=== PATIENT | male | born 1990 | race Caucasian/White ===

== ENCOUNTER 2022-03-26 18:32 | Inpatient (IN) | payer MEDICAID, SELFPAY ==
[2022-03-26 18:49] VITALS: BP 141/79; PULSE 90; RESP 18; TEMP 36.9; O2SAT 98; BMI 31.0
[2022-03-26 19:21] LABS: Basophils # 0.1 10^3/uL (0.0-0.1); Basophils % 0.6 %; Eosinophils # 0.3 10^3/uL (0.0-0.8); Eosinophils % 3.1 %; Hematocrit 44.2 % (42.0-52.0); Hemoglobin 14.2 g/dL (11.7-16.6); Lymphocytes # 2.9 10^3/uL (0.8-4.8); Lymphocytes % 34.7 %; Mean Corpuscular HGB Conc 32.1 g/dL (30.0-36.0); Mean Corpuscular Hemoglobin 29.3 pg (28.0-34.0); Mean Corpuscular Volume 91.1 fl (80-94); Mean Platelet Volume 9.3 fL (7.4-10.4); Monocytes # 0.7 10^3/uL (0.2-0.9); Monocytes % 8.1 %; Neutrophils # 4.43 10^3/uL (1.8-7.7); Neutrophils % 53.3 %; Nucleated Red Blood Cells % 0 %; Platelet Count 281 10^3/cmm (130-400); Red Blood Count 4.85 10^6/uL (4.1-5.3); Red Cell Distribution Width 12.8 % (12.1-15.1); White Blood Count 8.3 10^3/uL (4.0-10.0)
--- NOTE | 2022-03-26 19:31 | ED.C_ITS ---
HPI - Psych General: Chief Complaint: Psychiatric Symptoms Stated Complaint: MHE Time Seen by Provider: 03/26/22 19:17 Source: patient and family (spouse) Mode of arrival: ambulatory Limitations: no limitations History of Present Illness: This patient presents to our emergency department with history of opiate use and abuse. Which has complicated his life and also has resulted in overwhelming feelings of anxiety in anticipation of anxiety as well as fleeting thoughts of self-harm. His history is again remarkable for longstanding history of opiate abuse. He states he was clean for approximately 8 months and then had a 3-week hiatus of daily use of fentanyl. He states that he is trying to clear off fentanyl however he is having his pervasive thoughts that are very concerning to both he and his spouse. He has no specific plans of self-harm but does have a history of having a father who committed suicide at age 50 without any warning signs and he states that sometimes he wonders if his father knew something that he did not. He denies any other constitutional complaints. States he is in normally in good health. He has not been admitted for mental health issues in the past. MD complaint: suicidal ideation Duration: getting worse Exacerbating factors: drug use Context: recent drug abuse Associated symptoms: Reports suicidal ideation; Deny auditory hallucinations, visual hallucinations or homicidal ideation Treatments prior to arrival: none If self harm: admits thoughts of self harm Review of Systems Const: Denies: fever(s) or chills Eyes: Denies: change in vision ENMT: Denies: throat pain, odynophagia, ear discharge or nasal discharge Card: Denies: chest pain, palpitations or syncope Resp: Denies: dyspnea, productive cough or non-productive cough GI: Denies: abdominal pain, nausea or vomiting : Denies: flank pain, difficulty urinating, dysuria or urinary urgency Musc: Denies: neck pain, back pain or extremity pain Skin/Breast: Denies: rash or pruritus Neuro: Denies: headache(s), numbness in extremities, weakness in extremities, dizziness or Slurred speech present Psych: Reports: anxiety, mood swings, irritability and suicidal ideation; Denies: visual hallucinations, auditory hallucinations or homicidal ideation Physical Exam Narrative: EXAM NARRATIVE: Patient is alert makes good eye contact. Speech is somewhat rapid and approaching pressured but is logical and flowing most of the time. Const: COMMON NORMALS: patient oriented x3 GENERAL APPEARANCE: cooperative, well developed and anxious HENMT: COMMON NORMALS: normocephalic, atraumatic and moist oral mucous membranes HEAD & SCALP: normocephalic and atraumatic FACE & SINUS: normal facial exam and face symmetric Eye: COMMON NORMALS: Equal, round and reactive pupils present and conjunctivae normal CONJUNCTIVA: Yes conjunctivae normal PUPIL: Yes Equal, round and reactive pupils present Neck/C-Spine: COMMON NORMALS: full ROM and supple Chest: COMMONS NORMALS: normal inspection of the chest Resp: COMMON NORMALS: normal respiratory effort, No retractions and No use of accessory muscles Cardio: COMMON NORMALS: Peripheral pulses 2+ throughout PERIPHERAL PULSES: Peripheral pulses 2+ throughout GI: COMMON NORMALS: Normal to inspection, nondistended, normoactive bowel sounds present Back/Pelvis: COMMON NORMALS: thoracic and lumbar spine normal to inspection and thoraco-lumbar ROM normal Extremity: COMMON NORMALS: normal to inspection, full ROM and no clubbing, cyanosis or edema Neuro: COMMON NORMALS: patient oriented x3 and moves all extremities CRANIAL NERVES: Yes CN normal except as noted SPEECH: speech normal GAIT: Yes Normal gait present Psych: COMMON NORMALS: mental status grossly normal, Normal thought process present, denies hallucinations and denies homicidal ideation APPEARANCE: Yes grossly normal ATTITUDE: Yes engaged ACTIVITY/MOTOR BEHAVIOR: Yes appropriate eye contact and Yes fidgeting SPEECH: Yes rapid MOOD & AFFECT: Yes elevated mood THOUGHT PROCESS: Normal thought process present THOUGHT CONTENT: Yes Normal thought content present and Yes Suicidality present ATTENTION/CONCENTRATION: Yes attention grossly intact INSIGHT: Fair insight present (Psych) Skin: COMMON NORMALS: no rashes or lesions noted and turgor normal GENERAL SKIN EXAM: no rashes or lesions noted and turgor normal Course Reevaluation(s): Reevaluation #1: Remained stable and cooperative. Time: 21:11 Consultations: Consultation #1: Discussed with Dr. Fitzgerald who agreed to place the patient in inpatient status. Time: 21:13 Vital Signs: Vital signs: Vital Signs Temperature 98.4 F 03/26/22 18:49 Pulse Rate 90 03/26/22 18:49 Respiratory Rate 18 03/26/22 18:49 Blood Pressure 141/79 03/26/22 18:49 Pulse Oximetry 98 03/26/22 18:49 [facility] - Psych Medical Decision Making 32-year-old gentleman who presented to emergency department [place] by his spouse because of unclear thinking process and recurrent thoughts of self-harm without any specific plan. Patient has a longstanding history of opiate abuse and is been clean up until about last 3 weeks for the preceding 8 months. He has anticipating trying to get clean again but again these new thoughts that he is never experienced before are very concerning to him. He has a significant family history of suicidality and a father who committed suicide spontaneously at age 50 and some of his thoughts are regarding whether his father perhaps had the right idea or not. He is accompanied by his spouse who is very concerned and supportive of him treat seeking care. His medical screening evaluation for mental health evaluation and treatment is unremarkable for any ongoing issues that would preclude him from being admitted to the mental health unit. Lab Data : 03/26/22 19:08 03/26/22 19:08 Laboratory Results WBC 8.3 10^3/uL (4.0-10.0) 03/26/22 19:08 RBC 4.85 10^6/uL (4.1-5.3) 03/26/22 19:08 Hgb 14.2 g/dL (11.7-16.6) 03/26/22 19:08 Hct 44.2 % (42.0-52.0) 03/26/22 19:08 MCV 91.1 fl (80-94) 03/26/22 19:08 MCH 29.3 pg (28.0-34.0) 03/26/22 19:08 MCHC 32.1 g/dL (30.0-36.0) 03/26/22 19:08 RDW 12.8 % (12.1-15.1) 03/26/22 19:08 Plt Count 281 10^3/cmm (130-400) 03/26/22 19:08 MPV 9.3 fL (7.4-10.4) 03/26/22 19:08 Neut % (Auto) 53.3 % 03/26/22 19:08 Lymph % (Auto) 34.7 % 03/26/22 19:08 Lassen % (Auto) 8.1 % 03/26/22 19:08 Eos % (Auto) 3.1 % 03/26/22 19:08 Baso % (Auto) 0.6 % 03/26/22 19:08 Neut # (Auto) 4.43 10^3/uL (1.8-7.7) 03/26/22 19:08 Lymph # (Auto) 2.9 10^3/uL (0.8-4.8) 03/26/22 19:08 Lassen # (Auto) 0.7 10^3/uL (0.2-0.9) 03/26/22 19:08 Eos # (Auto) 0.3 10^3/uL (0.0-0.8) 03/26/22 19:08 Baso # (Auto) 0.1 10^3/uL (0.0-0.1) 03/26/22 19:08 Nucleated RBC % (auto) 0 % 03/26/22 19:08 Nucleated RBCs # 0.0 /100WBC 03/26/22 19:08 Sodium 137 mmol/L (136-145) 03/26/22 19:08 Potassium 4.5 mmol/L (3.5-5.1) 03/26/22 19:08 Chloride 100 mmol/L (98-107) 03/26/22 19:08 Carbon Dioxide 26 mmol/L (22-29) 03/26/22 19:08 Anion Gap 15.5 (5-19) 03/26/22 19:08 BUN 21 mg/dL (6-20) H 03/26/22 19:08 Creatinine 0.9 mg/dL (0.7-1.2) 03/26/22 19:08 GFR Calculation 97.8 mL/min (90-130) 03/26/22 19:08 Glucose 90 mg/dL (65-115) 03/26/22 19:08 Calculated Osmolality 287 mOsm/kg (285-295) 03/26/22 19:08 Calcium 9.1 mg/dL (8.5-10.5) 03/26/22 19:08 Total Bilirubin 0.3 mg/dL (0.15-1.2) 03/26/22 19:08 AST 26 U/L (0-40) 03/26/22 19:08 ALT 32 U/L (0-41) 03/26/22 19:08 Alkaline Phosphatase 76 U/L (40-130) 03/26/22 19:08 Total Protein 7.1 g/dL (6.6-8.7) 03/26/22 19:08 Albumin 4.5 g/dL (3.5-5.2) 03/26/22 19:08 Globulin 2.6 g/dL (1.3-4.6) 03/26/22 19:08 Salicylates < 0.3 mg/dL (3-10) L 03/26/22 19:08 Urine Opiates Screen Negative ng/mL (Negative) 03/26/22 19:08 Acetaminophen < 5.0 ug/mL (10-30) L 03/26/22 19:08 Ur Barbiturates Screen Negative ng/mL (Negative) 03/26/22 19:08 Ur Phencyclidine Scrn Negative ng/mL (Negative) 03/26/22 19:08 Ur Amphetamines Screen Negative ng/mL (Negative) 03/26/22 19:08 U Benzodiazepines Scrn Negative ng/mL (Negative) 03/26/22 19:08 Urine Cocaine Screen Negative ng/mL (Negative) 03/26/22 19:08 U Marijuana (THC) Screen Negative ng/mL (Negative) 03/26/22 19:08 Ethyl Alcohol < 10 mg/dL (0-10) 03/26/22 19:08 Discharge Plan Discharge Patient Disposition: Admitted As Inpatient Clinical Impression: Suicidal ideation Condition: Stable Coding Level of Care Code ED Medical Office Technologist for Fred Fwvaughn Exam Comprehensive
[2022-03-26 19:49] LABS: Alanine Aminotransferase 32 U/L (0-41); Albumin Level 4.5 g/dL (3.5-5.2); Alkaline Phosphatase 76 U/L (40-130); Anion Gap 15.5 (5-19); Aspartate Amino Transferase 26 U/L (0-40); Blood Urea Nitrogen 21 mg/dL (6-20); Calcium 9.1 mg/dL (8.5-10.5); Carbon Dioxide 26 mmol/L (22-29); Chloride 100 mmol/L (98-107); Globulin 2.6 g/dL (1.3-4.6); Glomerular Filtration Rate 97.8 mL/min (90-130); Glucose 90 mg/dL (65-115); Osmolality Calculated 287 mOsm/kg (285-295); Potassium 4.5 mmol/L (3.5-5.1); Sodium 137 mmol/L (136-145); Total Bilirubin 0.3 mg/dL (0.15-1.2); Total Protein 7.1 g/dL (6.6-8.7)
[2022-03-26 20:22] LABS: Amphetamines Screen Urine Negative (Negative); Barbiturates Screen Urine Negative (Negative); Benzodiazepines Screen Urine Negative (Negative); Cocaine Screen Urine Negative (Negative); Opiate Screen Urine Negative (Negative); PCP Screen Urine Negative (Negative); THC Screen Urine Negative (Negative)
[2022-03-26 20:26] LABS: Acetaminophen < 5.0 ug/mL (10-30); Alcohol Level < 10 mg/dL (0-10); Salicylate < 0.3 mg/dL (3-10)
[2022-03-26 23:23] VITALS: BP 136/80; PULSE 74; RESP 18; O2SAT 96
[2022-03-26 23:24] VITALS: TEMP 36.8
[2022-03-27 00:20] VITALS: BP 134/75; PULSE 76; RESP 16; TEMP 36.7; O2SAT 97
[2022-03-27 06:00] VITALS: RESP 17
--- NOTE | 2022-03-27 08:56 | P.NPUHP_ITS ---
Providers/Chief Complaint Admitting Physician: Lester Fitzgerald MD Chief Complaint: MHE HPI NPU History of Present Illness Jonatan Almonte is a 32 year old male who presented to the emergency department with the following report: Chief Complaint: Psychiatric Symptoms Stated Complaint: MHE Time Seen by Provider: 03/26/22 19:17 Source: patient and family (spouse) Mode of arrival: ambulatory Limitations: no limitations History of Present Illness: This patient presents to our emergency department with history of opiate use and abuse. Which has complicated his life and also has resulted in overwhelming feelings of anxiety in anticipation of anxiety as well as fleeting thoughts of self-harm. His history is again remarkable for longstanding history of opiate abuse. He states he was clean for approximately 8 months and then had a 3-week hiatus of daily use of fentanyl. He states that he is trying to clear off fentanyl however he is having his pervasive thoughts that are very concerning to both he and his spouse. He has no specific plans of self-harm but does have a history of having a father who committed suicide at age 50 without any warning signs and he states that sometimes he wonders if his father knew something that he did not. He denies any other constitutional complaints. States he is in normally in good health. He has not been admitted for mental health issues in the past. complaint: suicidal ideation Duration: getting worse Exacerbating factors: drug use Context: recent drug abuse Associated symptoms: Reports suicidal ideation; Deny auditory hallucinations, visual hallucinations or homicidal ideation Treatments prior to arrival: none If self harm: admits thoughts of self harm. He was admitted to the neuropsychiatric unit for definitive treatment of those issues. He presents today reporting he is not currently on psychiatric medications and presented to the hospital to get help with withdrawals and to get a bed at [facility]. He reports he felt he may hurt himself or do something dangerous. He has never been psychiatrically hospitalized or received outpatient services before but is currently living at [facility]. He has not been on psychiatric medications. He chews a can a day, denies alcohol, marijuana, has a problem with opiates, mostly fentanyl or fentanyl mixtures, and denies any other illicit drug use. He has never been to inpatient rehab, had a DUI when he was 17 years old but no other drug and alcohol related charges. He first began using when he was 17 years old with his friends which he reports became problematic around 21 years old. He has overdosed 4 times in the past but no intentional overdoses or suicide attempts. He denies any self- injurious behaviors. Psychiatric History: As above. Substance Abuse History: As above. Family History: He denies any mental health or addiction issues on either side of the family but reports his father committed suicide. Developmental History: He denies any issues with his or , learned to walk and talk and met his developmental milestones on time and denies any need for speech therapy, learning support, emotional support or special education classes. Psychosocial History: He reports his parents were together when he was born and remained together until his father committed suicide. He is the only product of this union. His mother has one additional child and his father had one additional child. He described his childhood as good and denies any emotional, physical or sexual abuse. He denies CYS or truancy issues. The highest grade he achieved was 11th grade and he got his GED. He endorses being heterosexual with his longest relationship being his current one of 12 years. He has been once, has an 11 year old daughter, has not been in the and endorses being a church. His longest employment is 6 to 7 months at a [employer]. He is currently living at the [email or web address] program. Legal History: He has been to [facility] and [facility] around 15 times, the longest time of which was 40 months. Medical History: He is allergic to Cefalexin. He has Hepatitis C. Meds NPU Allergies Allergy/AdvReac Type Severity Reaction Status Date / Time cephalexin Allergy Unknown Verified 03/26/22 18:49 Mental Status Exam MSE Comments: This is a muscular white male with tattoos on exposed skin with hospital scrubs on with limited grooming and eye contact. No abnormal movements except for significant psychomotor retardation. Mood described as anxiety is getting worse but otherwise alright, affect is congruent. Thought process, organized. Thought content: patient denies suicidal or homicidal ideation, no delusions reported or noted and denies any auditory or visual hallucinations. Attention and concentration are intact and memory appeared reliable but none were formally tested. He is arousable and oriented three times. Insight and judgment are limited. Impulse control is limited. Vitals/I&O/Wt Last Vital Signs Temp 98.1 F 08/26/22 00:20 Pulse 76 03/27/22 00:20 Resp 16 03/27/22 00:20 BP 134/75 03/27/22 00:20 Pulse Ox 97 03/27/22 00:20 O2 Del Method 03/27/22 00:20 Weight last 48 hrs Weight 95.254 kg Data NPU : 03/26/22 19:08 03/26/22 19:08 A&P Assessment and plan (1) Suicidal ideation: Status: Acute (2) Opioid use disorder, severe, dependence: Status: Acute (3) Opioid withdrawal: Status: Acute (4) Depression: Status: Acute Plan This is a 32 year old white male with a history of opiate use and genetic paula ding for lethality issues who presents from a sober living home for help with his withdrawal symptoms reporting he wants to be admitted to [facility] for rehab and open to medications at this time. 1. We will initiate Clonidine 0.1 mg poq 4 times daily and Seroquel 25 mg poq 4 times daily and up to 100 mg at night. 2. We will continue to monitor him through his withdrawal and make adjustments as necessary. 3. Encourage individual, group and milieu therapy 4. Continue q-15 minute check for safety 5. Recommend sober living treatment at the highest level of care to which the patient is willing to commit. Attestations NPU Medical Necessity Statement*: Inpatient hospitalization is medically necessary and the clinically appropriate intervention at this time. We will monitor medications and make changes as indicated. Patient will be in the hospital for over two midnights. Likely length of stay is three to five days. 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
[2022-03-27] MEDS: hyDROXYzine 25 mg Capsule 50 MG PO ×2 (09:24→21:24)
[2022-03-27] MEDS: acetaminophen 325 mg Tablet 650 MG PO (09:24)
[2022-03-27] MEDS: ondansetron 4 MG Tablet PO (09:24)
[2022-03-27] MEDS: OLANZapine 5 mg ODT PO (11:08)
--- NOTE | 2022-03-27 11:09 | PC.NURSE ---
PRN MEDICATIONS PT UP TO NURSES STATION STATES HIS WITHDRAWS FROM THE FENTANYL ARE GETTING WORSE. ZYDIS 5 MG GIVEN ORDERED. PT TOOK SNACKS AND DRINKS DOWN TO ROOM.
[2022-03-27 14:00] VITALS: BP 153/72; PULSE 58; RESP 17; TEMP 36.8; O2SAT 98
[2022-03-27 20:57] VITALS: BP 153/77; PULSE 63; RESP 17; O2SAT 92
[2022-03-28 06:00] VITALS: BP 153/77; PULSE 63; RESP 17; TEMP 36.8; O2SAT 92
[2022-03-28] MEDS: OLANZapine 5 mg ODT PO (08:46)
[2022-03-28] MEDS: acetaminophen 325 mg Tablet 650 MG PO (08:46)
[2022-03-28] MEDS: ondansetron 4 MG Tablet PO (08:46)
--- NOTE | 2022-03-28 09:46 | PC.NURSE ---
PT CONTINUES TO WITHDRAW FROM FENTANYL, THIS RN OBSERVED PT IN BED SHAKING, JERKING AND TEARING UP. PT STATES, I'M REALLY BAD THIS MORNING CAN SOMEONE HELP ME. PT REPORTS PAIN 8/10 AND NAUSEA. MED NURSE NOTIFIED TO GIVE ZOFRAN, TYLENOL AND ZYDIS ORDERED. PT VERY GRATEFUL. DENIES SI/HI AND AVH AT THIS TIME. THIS RN NOTIFIED DR. BHATT OF INCREASED WITHDRAWL SYMPTOMS. NEW ORDERS RECEIVED TO START CLONIDINE 0.1 MG Q 6 HOURS SCHEDULED, SEROQUEL 25 MG PO Q6 HOURS AND SEROQUEL 50 MG PO AT BEDTIME MAY REPEAT DOSE TO EQUAL 100MG. ALL ORDERS PLACED IN [employer] EDUCATED PT ON ALL NEW ORDERS ALL QUESTIONS ANSWERED AND SUPPORT VOICED.
[2022-03-28 10:48] VITALS: BP 150/70
[2022-03-28] MEDS: cloNIDine 0.1 mg Tablet PO ×3 (10:48→22:18)
[2022-03-28] MEDS: quetiapine 25 mg Tablet PO ×4 (10:48→21:55)
[2022-03-28 14:00] VITALS: BP 122/77; PULSE 105; RESP 18; TEMP 36.6; O2SAT 98
[2022-03-28 15:09] VITALS: BP 127/65
[2022-03-28] MEDS: haloperidol 5 mg Tablet PO (15:58)
--- NOTE | 2022-03-28 17:03 | W.PM.NPUPNS ---
Subjective NPU Subjective: Patient presents today reporting that he is really struggling with his withdrawal symptoms. He agreed to the clonidine and Seroquel being started. We discussed the possibility of increasing the dose as we identify his tolerance. He reports that otherwise there are no changes and is just doing the best that he can. Mental Status Exam MSE Comments: This is a muscular white male with tattoos on exposed skin with hospital scrubs on with limited grooming and eye contact. No abnormal movements except for significant psychomotor retardation. Mood described as anxiety and withdrawal are tough but otherwise alright, affect is congruent. Thought process, organized. Thought content: patient denies suicidal or homicidal ideation, no delusions reported or noted and denies any auditory or visual hallucinations. Attention and concentration are intact and memory appeared reliable but none were formally tested. He is arousable and oriented three times. Insight and judgment are limited. Impulse control is limited. Vitals/I&O/Wt Last Vital Signs Temp 98.6 F 03/28/22 20:17 Pulse 98 03/28/22 20:17 Resp 20 H 03/28/22 20:17 BP 112/79 03/28/22 20:17 Pulse Ox 94 03/28/22 20:17 O2 Del Method 03/28/22 14:00 Data NPU : 03/26/22 19:08 03/26/22 19:08 A&P Assessment and plan (1) Suicidal ideation: Status: Acute (2) Opioid use disorder, severe, dependence: Status: Acute (3) Opioid withdrawal: Status: Acute (4) Depression: Status: Acute Plan This is a 32 year old white male with a history of opiate use and genetic loading for lethality issues who presents from a sober living home for help with his withdrawal symptoms reporting he wants to be admitted to [facility] for rehab and open to medications at this time. 1. We started clonidine 0.1 mg poq 4 times daily and Seroquel 25 mg poq 4 times daily and up to 100 mg at night. 2. We will continue to monitor him through his withdrawal and make adjustments as necessary. 3. Encourage individual, group and milieu therapy 4. Continue q-15 minute check for safety 5. Recommend sober living treatment at the highest level of care to which the patient is willing to commit. Involuntary Hold Information 96 Hour Hold: 96 Hour Involuntary Admission: No Attestations NPU Medical Necessity Statement*: Inpatient hospitalization is medically necessary and the clinically appropriate intervention at this time. We will monitor medications and make changes as indicated. Likely length of stay is 2-4 days. 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
[2022-03-28 20:17] VITALS: BP 112/79; PULSE 98; RESP 20; TEMP 37; O2SAT 94
[2022-03-28] MEDS: quetiapine 25 mg Tablet 50 MG PO (21:55)
[2022-03-29] MEDS: OLANZapine 5 mg ODT PO (03:10)
[2022-03-29] MEDS: cloNIDine 0.1 mg Tablet PO ×4 (03:10→21:28)
[2022-03-29 06:00] VITALS: BP 118/80; PULSE 88; RESP 17; TEMP 36.7; O2SAT 97
--- NOTE | 2022-03-29 06:38 | P.NPUPN_ITS ---
Subjective NPU Subjective: Patient presents today continuing to be quite isolative and remaining in bed, but he reports that is the easiest and best way for him to manage the withdrawal symptoms which have been extreme. He reports that his anxiety and depression are okay and anxiety is better managed with the current m edications. He reports that he is having some restless legs at night which he does not know if is related to medication or the withdrawal. We agreed that we would possibly change bedtime medications if he has restless legs tonight. Mental Status Exam MSE Comments: This is a muscular white male with tattoos on exposed skin with hospital scrubs on with limited grooming and eye contact. No abnormal movements except for significant psychomotor retardation. Mood described as a little less anxious, affect is congruent. Thought process, organized. Thought content: patient denies suicidal or homicidal ideation, no delusions reported or noted and denies any auditory or visual hallucinations. Attention and concentration are intact and memory appeared reliable but none were formally tested. He is arousable and oriented three times. Insight and judgment are limited. Impulse control is limited. Vitals/I&O/Wt Last Vital Signs Temp 98.6 F 03/28/22 20:17 Pulse 98 03/28/22 20:17 Resp 20 H 03/28/22 20:17 BP 112/79 03/28/22 20:17 Pulse Ox 94 03/28/22 20:17 O2 Del Method 03/28/22 14:00 Data NPU : 03/26/22 19:08 03/26/22 19:08 A&P Assessment and plan (1) Suicidal ideation: Status: Acute (2) Opioid use disorder, severe, dependence: Status: Acute (3) Opioid withdrawal: Status: Acute (4) Depression: Status: Acute Plan This is a 32 year old white male with a history of opiate use and genetic loading for lethality issues who presents from a sober living home for help with his withdrawal symptoms reporting he wants to be admitted to [facility] for rehab and open to medications at this time. 1. Continue current medications. We started clonidine 0.1 mg poq 4 times daily and Seroquel 25 mg poq 4 times daily as well as up to 100 mg at night. 2. We will continue to monitor him through his withdrawal and make adjustments as necessary. 3. Encourage individual, group and milieu therapy 4. Continue q-15 minute check for safety 5. Recommend sober living treatment at the highest level of care to which the patient is willing to commit. Involuntary Hold Information 96 Hour Hold: 96 Hour Involuntary Admission: No Attestations NPU Medical Necessity Statement*: Inpatient hospitalization is medically necessary and the clinically appropriate intervention at this time. We will monitor medications and make changes as indicated. Likely length of stay is 1-3 days. 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
[2022-03-29 09:40] VITALS: BP 118/80
[2022-03-29] MEDS: quetiapine 25 mg Tablet PO ×4 (09:40→21:28)
[2022-03-29 14:00] VITALS: BP 116/71; PULSE 119; RESP 18; TEMP 36.8; O2SAT 96
[2022-03-29 15:48] VITALS: BP 116/71
[2022-03-29 19:46] VITALS: BP 111/65; PULSE 93; RESP 18; TEMP 36.8; O2SAT 97
[2022-03-29 21:28] VITALS: BP 111/65
[2022-03-29] MEDS: quetiapine 25 mg Tablet 50 MG PO (21:28)
[2022-03-30] MEDS: cloNIDine 0.1 mg Tablet PO (04:11)
[2022-03-30 06:00] VITALS: BP 121/77; PULSE 82; RESP 16; TEMP 36.4; O2SAT 97
--- NOTE | 2022-03-30 07:39 | PC.NURSE ---
IN ROOM RESTING, AWAITING DC THIS AM TO [facility]. PT STATES HE IS READY TO GO AND GET HELP. PT DENIES PAIN. DENIES SI/HI AND AVH AT THIS TIME. ALL QUESTIONS ANSWERED AND SUPPORT VOICED.
[2022-03-30] MEDS: quetiapine 25 mg Tablet PO (07:50)
[2022-03-30 08:41] VITALS: BP 121/77; PULSE 82; RESP 16; TEMP 36.4; O2SAT 97
--- NOTE | 2022-03-30 10:02 | PC.OT ---
OT EVALUATION ORDER RECEIVED. PATIENT DISCHARGED BEFORE EVALUATION COULD BE COMPLETED.
--- NOTE | 2022-03-30 11:47 | P.NPUDS_ITS ---
Diagnoses at Discharge Discharge Diagnosis (1) Suicidal ideation: Status: Resolved (2) Opioid use disorder, severe, dependence: Status: Acute (3) Opioid withdrawal: Status: Resolved (4) Depression: Status: Acute Reason for Visit Reason for Visit: MHE Brief History: Jonatan Almonte is a 32 year old male who presented to the emergency department with the following report: Chief Complaint: Psychiatric Symptoms Stated Complaint: MHE Time Seen by Provider: 03/26/22 19:17 Source: patient and family (spouse) Mode of arrival: ambulatory Limitations: no limitations History of Present Illness:?? This patient presents to our emergency depart ment with history of opiate use and abuse.? Which has complicated his life and also has resulted in overwhelming feelings of anxiety in anticipation of anxiety as well as fleeting thoughts of self-harm.? His history is again remarkable for longstanding history of opiate abuse.? He states he was clean for approximately 8 months and then had a 3-week hiatus of daily use of fentanyl.? He states that he is trying to clear off fentanyl however he is having his pervasive thoughts that are very concerning to both he and his spouse.? He has no specific plans of self-harm but does have a history of having a father who committed suicide at age 50 without any warning signs and he states that sometimes he wonders if his father knew something that he did not.? He denies any other constitutional complaints.? States he is in normally in good health.? He has not been admitted for mental health issues in the past. MD complaint: suicidal ideation Duration: getting worse Exacerbating factors: drug use Context: recent drug abuse Associated symptoms: Reports suicidal ideation; Deny auditory hallucinations, visual hallucinations or homicidal ideation Treatments prior to arrival: none If self harm: admits thoughts of self harm. He? ? was admitted to the neuropsychiatric unit for definitive treatment of those issues. He presents today reporting he is not currently on psychiatric medications and presented to the hospital to get help with withdrawals and to get a bed at [facility]. He reports he felt he may hurt himself or do something dangerous. He has never been psychiatrically hospitalized or received outpatient services before but [facility]. He has not been on psychiatric medications. He chews a can a day, denies alcohol, marijuana, has a problem with opiates, mostly fentanyl or fentanyl mixtures, and denies any other illicit drug use. He has never been to inpatient rehab, had a DUI when he was 17 years old but no other drug and alcohol related charges. He first began using when he was 17 years old with his friends which he reports became problematic around 21 years old. He has overdosed 4 times in the past but no intentional overdoses or suicide attempts. He denies any self- injurious behaviors. Psychiatric History: As above. Substance Abuse History: As above. Family History: He denies any mental health or addiction issues on either side of the family but reports his father committed suicide. Developmental History: He denies any issues with his or , learned to walk and talk and met his developmental milestones on time and denies any need for speech therapy, learning support, emotional support or special education classes. Psychosocial History: He reports his parents were together when he was born and remained together until his father committed suicide. He is the only product of this union. His mother has one additional child and his father had one additional child. He described his childhood as good and denies any emotional, physical or sexual abuse. He denies CYS or truancy issues. The highest grade he achieved was 11th grade and he got his GED. He endorses being heterosexual with his longest relationship being his current one of 12 years. 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 His longest employment is 6 to 7 months at a [employer]. He is currently living at the [facility]. Legal History: He has been to shelter 5 times and long-term around 15 times, the longest time of which was 40 months. Medical History: He is allergic to Cefalexin. He has Hepatitis C. Hospital Course Hospital Course Hospital Course During the hospitalization, patient had routine laboratory studies which were within normal limits except for few outliers.? Additionally there was a general medical evaluation which was also within normal limits and revealed no new acute processes. Discharge Summary: At the time of discharge, lethality was denied. Mood and anxiety were well managed.? Patient endorsed a plan to avoid all drugs of abuse and follow-up with the aftercare recommendations of the treatment team.? Patient was evaluated and deemed to be absent credible lethality, and had achieved the maximum benefit from an inpatient hospitalization, so was discharged. Involuntary Hold Information 96 Hour Hold: 96 Hour Involuntary Admission: No Mental Status Exam MSE Comments: This is a muscular white male with tattoos on exposed skin with hospital scrubs on with limited grooming and eye contact. No abnormal movements except for significant psychomotor retardation. Mood described as better, affect is mood congruent. Thought process, organized. Thought content: patient denies suicidal or homicidal ideation, no delusions reported or noted and denies any auditory or visual hallucinations. Attention and concentration are intact and memory appeared reliable but none were formally tested. He is arousable and oriented three times. Insight and judgment are limited. Impulse control is limited. Discharge Data Studies Completed and Pending: Laboratory Results WBC 8.3 10^3/uL (4.0- 10.0) 03/26/22 19:08 RBC 4.85 10^6/uL (4.1 -5.3) 03/26/22 19:08 Hgb 14.2 g/dL (11.7-1 6.6) 03/26/22 19:08 Hct 44.2 % (42.0-52.0 ) 03/26/22 19:08 MCV 91.1 fl (80-94) 03/26/22 19:08 MCH 29.3 pg (28.0-34. 0) 03/26/22 19:08 MCHC 32.1 g/dL (30.0-3 6.0) 03/26/22 19:08 RDW 12.8 % (12.1-15.1 ) 03/26/22 19:08 Plt Count 281 10^3/cmm (130 -400) 03/26/22 19:08 MPV 9.3 fL (7.4-10.4) 03/26/22 19:08 Neut % (Auto) 53.3 % 03/26/22 19:08 Lymph % (Auto) 34.7 % 03/26/22 19:08 [place] % (Auto) 8.1 % 03/26/22 19:08 Eos % (Auto) 3.1 % 03/26/22 19:08 Baso % (Auto) 0.6 % 03/26/22 19:08 Neut # (Auto) 4.43 10^3/uL (1.8 -7.7) 03/26/22 19:08 Lymph # (Auto) 2.9 10^3/uL (0.8- 4.8) 03/26/22 19:08 [place] # (Auto) 0.7 10^3/uL (0.2- 0.9) 03/26/22 19:08 Eos # (Auto) 0.3 10^3/uL (0.0- 0.8) 03/26/22 19:08 Baso # (Auto) 0.1 10^3/uL (0.0- 0.1) 03/26/22 19:08 Nucleated RBC % (a uto) 0 % 03/26/22 19:08 Nucleated RBCs # 0.0 /100WBC 03/26/22 19:08 Sodium 137 mmol/L (136-1 45) 03/26/22 19:08 Potassium 4.5 mmol/L (3.5-5 .1) 03/26/22 19:08 Chloride 100 mmol/L (98-10 7) 03/26/22 19:08 Carbon Dioxide 26 mmol/L (22-29) 03/26/22 19:08 Anion Gap 15.5 (5-19) 03/26/22 19:08 BUN 21 mg/dL (6-20) H 03/26/22 19:08 Creatinine 0.9 mg/dL (0.7-1. 2) 03/26/22 19:08 GFR Calculation 97.8 mL/min (90-1 30) 03/26/22 19:08 Glucose 90 mg/dL (65-115) 03/26/22 19:08 Calculated Osmolal ity 287 mOsm/kg (285- 295) 03/26/22 19:08 Calcium 9.1 mg/dL (8.5-10 .5) 03/26/22 19:08 Total Bilirubin 0.3 mg/dL (0.15-1 .2) 03/26/22 19:08 AST 26 U/L (0-40) 03/26/22 19:08 ALT 32 U/L (0-41) 03/26/22 19:08 Alkaline Phosphata se 76 U/L (40-130) 03/26/22 19:08 Total Protein 7.1 g/dL (6.6-8.7 ) 03/26/22 19:08 Albumin 4.5 g/dL (3.5-5.2 ) 03/26/22 19:08 Globulin 2.6 g/dL (1.3-4.6 ) 03/26/22 19:08 Salicylates < 0.3 mg/dL (3-10 ) L 03/26/22 19:08 Urine Opiates Scre en Negative ng/mL (N egative) 03/26/22 19:08 Acetaminophen < 5.0 ug/mL (10-3 0) L 03/26/22 19:08 Ur Barbiturates Sc reen Negative ng/mL (N egative) 03/26/22 19:08 Ur Phencyclidine S crn Negative ng/mL (N egative) 03/26/22 19:08 Ur Amphetamines Sc reen Negative ng/mL (N egative) 03/26/22 19:08 U Benzodiazepines Scrn Negative ng/mL (N egative) 03/26/22 19:08 Urine Cocaine Scre en Negative ng/mL (N egative) 03/26/22 19:08 U Marijuana (THC) Screen Negative ng/mL (N egative) 03/26/22 19:08 Ethyl Alcohol < 10 mg/dL (0-10) 03/26/22 19:08 Vitals: Last Vital Signs Temp 97.6 F 03/30/22 08:41 Pulse 82 03/30/22 08:41 Resp 16 03/30/22 08:41 BP 121/77 03/30/22 08:41 Pulse Ox 97 03/30/22 08:41 O2 Del Method 03/29/22 14:00 Discharge Plan Discharge Patient Disposition: Home Condition: Stable Prescriptions: No Action No Known Home Medications Discharge Orders: Discharge Order (Routine); Ordered 03/30/22 Ordered By: Jamaal Ashley Referrals: [facility] [Other] Discharge Diet: Advance as tolerated Discharge Activity: Resume usual activity Patient Instructions: Depression (ED), Help Prevent Suicide (DC), Opioid Safety Discharge Attestations NPU Time Spent in Discharge Care*: less than 30 min Specific Discharge Activities: Specific discharge activities: educating patient, educating and/or supporting family/caregiver, discussing with upper caser/social workers/dc planners and documenting/other paperwork Coding Level of Care Code Established Pt Acute Chg FW DC note Patient Type Established History Problem Focused Exam Problem Focused Medical Decision Making Straight Forward Diagnoses Suicidal ideation R45.851 Opioid use disorder, severe, dependence F11.20 Opioid withdrawal F11.93 Depression F32.A
== END 2022-03-30 08:55 | disposition home or self-care (01) | DRG 897 ==
LOC: ER 21:13 → NP 03-27 04:11
PROVIDERS: Emergency Medicine; Admitting Provider Psychiatry & Neurology Psychiatry; Emergency Provider Emergency Medicine; Visit Provider Psychiatry & Neurology Psychiatry
DX: F11.23 Opioid dependence with withdrawal (principal); R45.851 Suicidal ideations; F32.A Depression, unspecified; F41.9 Anxiety disorder, unspecified; B19.20 Unspecified viral hepatitis C without hepatic coma; Z81.8 Family history of other mental and behavioral disorders
CPT/HCPCS: 80053; 80306; 80307; 85025; 99285; Q0162

== ENCOUNTER 2022-05-02 14:27 | Emergency (ER) | payer MEDICAID, SELFPAY ==
[2022-05-02 14:39] VITALS: BP 145/85; PULSE 91; RESP 16; TEMP 36.2; O2SAT 98
--- NOTE | 2022-05-02 15:39 | W.ED.PSYCHS ---
HPI - Psych General: Chief Complaint: Psychiatric Symptoms Stated Complaint: Psych Eval Time Seen by Provider: 05/02/22 14:55 History of Present Illness: Patient comes in with concerns for fentanyl withdrawal. States that both he and his currently use fentanyl and both want to stop. He states that both of them have a bed at different rehab facilities coming this Wednesday, however he is concerned that he will become suicidal and or self harming during the process of the withdrawals. States that he was hoping he could be admitted to the Neuropsych Unit like has been done in the past to help prevent him from going into serious withdrawal. I discussed the case with psychiatry and unfortunately we do not have any beds at this time. We will not have any beds for a couple of days. I discussed this with the patient and we will attempt to help his withdrawals with medication instead with an understanding that if things worsen he is to return to the emergency department. Review of Systems Const: Denies: fever(s) or body aches Eyes: Denies: change in vision or blurry vision ENMT: Denies: throat pain or odynophagia Card: Denies: chest pain or palpitations Resp: Denies: dyspnea or productive cough GI: Denies: abdominal pain, nausea or vomiting : Denies: flank pain or dysuria Musc: Denies: neck pain or back pain Skin/Breast: Denies: rash or pruritus Neuro: Denies: headache(s) or numbness in extremities Psych: Denies: anxiety or change in appetite Endo: Denies: polyuria or excessive sweating Physical Exam Const: COMMON NORMALS: no acute distress, patient oriented x3, healthy appearing and alert HENMT: COMMON NORMALS: normocephalic and atraumatic HEAD & SCALP: normocephalic and atraumatic Eye: COMMON NORMALS: Equal, round and reactive pupils present and EOMs intact bilaterally PUPIL: Yes Equal, round and reactive pupils present Neck/C-Spine: COMMON NORMALS: full ROM and supple Resp: COMMON NORMALS: normal respiratory effort, No retractions and No use of accessory muscles Cardio: COMMON NORMALS: regular rate and regular rhythm RATE: regular rate RHYTHM: regular rhythm GI: COMMON NORMALS: Normal to inspection, nondistended, normoactive bowel sounds present, Soft to palpation and non-tender PALPATION: Yes Soft to palpation Back/Pelvis: COMMON NORMALS: thoracic and lumbar spine normal to inspection and no thoracic nor lumbar tenderness Extremity: COMMON NORMALS: normal to inspection and full ROM Neuro: COMMON NORMALS: patient oriented x3 SENSORIUM/ORIENTATION: Yes alert Psych: COMMON NORMALS: mental status grossly normal and cooperative Skin: NARRATIVE SKIN EXAM: Superficial lacerations to the left forearm Course Vital Signs: Vital signs: Vital Signs Temperature 97.1 F L 05/02/22 14:39 Pulse Rate 91 05/02/22 14:39 Respiratory Rate 16 05/02/22 14:39 Blood Pressure 145/85 05/02/22 14:39 Pulse Oximetry 98 05/02/22 14:39 Oxygen Delivery Me thod 05/02/22 14:39 MDM - Psych Medical Decision Making Patient comes in with concerns for fentanyl withdrawal. States that both he and his currently use fentanyl and both want to stop. He states that both of them have a bed at different rehab facilities coming this Wednesday, however he is concerned that he will become suicidal and or self harming during the process of the withdrawals. States that he was hoping he could be admitted to the Neuropsych Unit like has been done in the past to help prevent him from going into serious withdrawal. I discussed the case with psychiatry and unfortunately we do not have any beds at this time. We will not have any beds for a couple of days. I discussed this with the patient and we will attempt to help his withdrawals with medication instead with an understanding that if things worsen he is to return to the emergency department. We will start him on clonidine, dicyclomine, Ativan, Zofran, and Seroquel which he states is what worked for him the last time he went through this. Will discharge at this time with precautions return for worsening or changing symptoms. Discharge Plan Discharge Patient Disposition: Home Clinical Impression: Opioid use disorder, severe, dependence Condition: Stable Prescriptions: New Ativan 1 mg tablet 1 mg PO Q6H PRN (Reason: anxiety) Qty: 15 0RF clonidine HCl 0.1 mg tablet 0.1 mg PO BID Qty: 6 0RF dicyclomine 20 mg tablet 20 mg PO QID PRN (Reason: diarrhea) Qty: 15 0RF ondansetron 4 mg tablet,disintegrating 4 mg PO Q8H PRN (Reason: nausea and vomiting) 4 Days Qty: 12 0RF Seroquel 25 mg tablet 25 mg PO DAILY Qty: 4 0RF Discharge Orders: Discharge ED (Routine); Ordered 05/02/22 Ordered By: Felipe Resendiz Stand Alone Forms: Work/School Release Coding Level of Care Code ED Parking Meter Collector for Fred Haynes
== END 2022-05-02 16:00 | disposition home or self-care (01) ==
PROVIDERS: Emergency Provider Emergency Medicine
DX: F11.20 Opioid dependence, uncomplicated (principal)
CPT/HCPCS: 99284

== ENCOUNTER 2022-05-07 17:23 | Emergency (ER) | payer MEDICAID, SELFPAY ==
--- NOTE | 2022-05-07 17:34 | W.ED.GENADLT ---
Documented by User: Jim Whelan DO 05/18/22 06:23 HPI - General Adult General: Chief complaint: General Medical Stated complaint: HTN Time Seen by Provider: 05/07/22 17:34 [facility] ED PFSH: Medical History (Updated 05/15/22 @ 00:02 by ) Drug use disorder Course Vital Signs: Vital signs: Vital Signs Temperature 98.0 F 05/07/22 19:04 Pulse Rate 65 05/07/22 19:04 Respiratory Rate 15 05/07/22 19:04 Blood Pressure 118/62 05/07/22 19:04 Pulse Oximetry 97 05/07/22 19:04 Oxygen Delivery Me thod 05/07/22 18:00 MDM - General Adult Medical Decision Making Patient presents here with concerns for withdrawals he has no signs of withdrawals here his blood pressure here is normal. He is refusing treatment here and lab draw he is stable here vitals are stable we will discharge him back to [facility]. I had signed up to see this patient near the end of my shift initially had ordered some lab work on him but did not see the patient. Dr. Quintana seen the patient and discharge her see his notes. Medical Records I reviewed the patient's medical records. Lab Data I reviewed the patient's lab results. Discharge Plan Discharge Patient Disposition: Home Clinical Impression: Drug use disorder Condition: Stable Prescriptions: No Action gabapentin 300 mg capsule 300 mg PO TID buprenorphine-naloxone 2-0.5 mg tablet, sublingual 1 tab sublingual BID baclofen 10 mg tablet 10 mg PO TID doxycycline hyclate 100 mg capsule 100 mg PO BID 7 Days Qty: 14 0RF clonidine HCl 0.1 mg tablet 0.1 mg PO BID Qty: 6 0RF Discharge Orders: Discharge ED (Routine); Ordered 05/07/22 Ordered By: Carl Mann Discharge Diet: Advance as tolerated Discharge Activity: Resume usual activity Patient Instructions: Opioid Withdrawal (ED) Coding Level of Care Code ED Logistics Director for Fred Fwd Exam Comprehensive Documented by User: Carl Mann MD 05/07/22 19:19 HPI - General Adult General: Chief complaint: General Medical Stated complaint: HTN Time Seen by Provider: 05/07/22 17:34 Source: patient Mode of arrival: ambulatory Limitations: no limitations History of Present Illness: 32-year-old male who is here from [facility] he has been there for a day for fentanyl abuse and rehab his last fentanyl use was yesterday had been getting clonidine his blood pressure got low there. He is well-appearing here he has no signs of withdrawals his blood pressure here is normal. He denies vomiting. Associated symptoms: Deny chest pain, dyspnea, headache(s), nausea, rash or vomiting Review of Systems Const: Denies: fever(s), chills, body aches or change in appetite Eyes: Denies: blurry vision or eye discomfort ENMT: Denies: throat pain or dental pain Card: Denies: chest pain Resp: Denies: dyspnea GI: Denies: abdominal pain, nausea, vomiting or diarrhea : Denies: dysuria Musc: Denies: neck pain or back pain Skin/Breast: Denies: rash Neuro: Denies: headache(s) Psych: Denies: depression Abhijit/Lymph: Denies: easy bruising All/Imm: Denies: urticaria PFSH ED PFSH: Medical History (Updated 05/15/22 @ 00:02 by ) Drug use disorder Physical Exam Const: COMMON NORMALS: no acute distress, patient oriented x3 and healthy appearing HENMT: COMMON NORMALS: normocephalic and atraumatic HEAD & SCALP: normocephalic and atraumatic Eye: COMMON NORMALS: Equal, round and reactive pupils present and EOMs intact bilaterally PUPIL: Yes Equal, round and reactive pupils present Neck/C-Spine: COMMON NORMALS: full ROM and supple Chest: COMMONS NORMALS: normal inspection of the chest and normal palpation of entire chest wall Resp: COMMON NORMALS: normal respiratory effort, No retractions, No use of accessory muscles and clear to auscultation bilaterally AUSCULTATION: clear to auscultation bilaterally Cardio: COMMON NORMALS: regular rate, regular rhythm and No murmurs present (Cardio) RATE: regular rate RHYTHM: regular rhythm GI: COMMON NORMALS: Normal to inspection, nondistended, normoactive bowel sounds present, Soft to palpation, non-tender and no masses PALPATION: Yes Soft to palpation Extremity: COMMON NORMALS: normal to inspection and full ROM Neuro: COMMON NORMALS: patient oriented x3, moves all extremities and no focal motor deficits Psych: COMMON NORMALS: mental status grossly normal, Normal thought process present and cooperative THOUGHT PROCESS: Normal thought process present Skin: COMMON NORMALS: no rashes or lesions noted and no wounds GENERAL SKIN EXAM: no rashes or lesions noted Course Vital Signs: Vital signs: Vital Signs Temperature 98.0 F 05/07/22 19:04 Pulse Rate 65 05/07/22 19:04 Respiratory Rate 15 05/07/22 19:04 Blood Pressure 118/62 05/07/22 19:04 Pulse Oximetry 97 05/07/22 19:04 Oxygen Delivery Me thod 05/07/22 18:00 MDM - General Adult Medical Decision Making Patient presents here with concerns for withdrawals he has no signs of withdrawals here his blood pressure here is normal. He is refusing treatment here and lab draw he is stable here vitals are stable we will discharge him back to [facility]. Discharge Plan Discharge Patient Disposition: Home Clinical Impression: Drug use disorder Condition: Stable Prescriptions: No Action gabapentin 300 mg capsule 300 mg PO TID buprenorphine-naloxone 2-0.5 mg tablet, sublingual 1 tab sublingual BID baclofen 10 mg tablet 10 mg PO TID doxycycline hyclate 100 mg capsule 100 mg PO BID 7 Days Qty: 14 0RF clonidine HCl 0.1 mg tablet 0.1 mg PO BID Qty: 6 0RF Discharge Orders: Discharge ED (Routine); Ordered 05/07/22 Ordered By: Carl Mann Discharge Diet: Advance as tolerated Discharge Activity: Resume usual activity Patient Instructions: Opioid Withdrawal (ED) Coding Level of Care Code ED Logistics Director for Cydneyg Fwd Exam Comprehensive
[2022-05-07 18:00] VITALS: BP 106/52; PULSE 76; RESP 15; TEMP 36.7; O2SAT 96
--- NOTE | 2022-05-07 18:32 | PC.NURSE ---
9912 Patient is refusing EKG and labs
[2022-05-07 19:04] VITALS: BP 118/62; PULSE 65; RESP 15; TEMP 36.7; O2SAT 97
== END 2022-05-07 19:05 | disposition home or self-care (01) ==
PROVIDERS: Emergency Provider Emergency Medicine
DX: F11.90 Opioid use, unspecified, uncomplicated (principal)
CPT/HCPCS: 99283

== ENCOUNTER 2022-06-19 13:10 | Emergency (ER) | payer MEDICAID, SELFPAY ==
[2022-06-19 13:20] VITALS: BP 138/93; PULSE 104; RESP 14; TEMP 36.7; O2SAT 99; BMI 32.5
--- NOTE | 2022-06-19 13:47 | W.ED.EXTPRO ---
HPI - Extremity Problem General: Chief complaint: Extremity Problem,Nontraumatic Stated complaint: Left knee injury Time Seen by Provider: 06/19/22 13:46 History of Present Illness: Mr. Almonte is a 32-year-old gentleman presented to the emergency department due to concern over knee pain. He reports 4 days ago he was lifting weights however does not recall specific inciting injury. Approximately 2 or 3 hours later he began having left knee pain. Since that time has had pain associated with range of motion and walking. Does endorse some medial foot intermittent numbness. Intensity symptoms is moderate. Has tried ibuprofen without significant relief. Does have a history of knee injury on the side. No other specific changes in health, exacerbating, or alleviating factors identified. Onset (ago): day(s) Location: left and knee Severity scale (1-10): 6 Quality: aching and sharp Relieving factors: nothing Exacerbating factors: range of motion, weight bearing and walking Review of Systems General: Reports: 10 or more systems reviewed and unremarkable except in HPI and below PFSH ED PFSH: Medical History Drug use disorder Social History (Updated 07/01/22 @ 23:00 by Olu Ma MD) Substance/Drug Use: former Physical Exam Const: COMMON NORMALS: alert GENERAL APPEARANCE: cooperative and well developed HENMT: COMMON NORMALS: normocephalic and atraumatic HEAD & SCALP: normocephalic and atraumatic Eye: COMMON NORMALS: conjunctivae normal CONJUNCTIVA: Yes conjunctivae normal SCLERA: sclerae normal Neck/C-Spine: COMMON NORMALS: supple GENERAL: Yes trachea midline Resp: COMMON NORMALS: normal respiratory effort EFFORT & INSPECTION: Yes able to speak in complete sentences Cardio: COMMON NORMALS: regular rate and regular rhythm RATE: regular rate RHYTHM: regular rhythm Extremity: NARRATIVE EXTREMITY EXAM: Left superior patella and tendon tenderness to palpation. Distal CMS intact. Extensor mechanism intact. GENERAL: Yes normal exam except as noted and No edema Neuro: COMMON NORMALS: moves all extremities SENSORIUM/ORIENTATION: Yes alert and No Orientation impaired Course Vital Signs: Vital signs: Vital Signs Temperature 98.0 F 06/19/22 13:20 Pulse Rate 104 H 06/19/22 13:20 Respiratory Rate 14 06/19/22 13:20 Blood Pressure 138/93 06/19/22 13:20 Pulse Oximetry 99 06/19/22 13:20 Oxygen Delivery Me thod 06/19/22 13:20 MDM - Extremity (Nontraumatic) Medical Decision Making 32-year-old gentleman with nontraumatic knee pain. Exam as above. X-ray negative for acute fracture. Treated with cyclobenzaprine and acetaminophen. Most likely cause of patient symptoms is tendinitis. The results of ED evaluation were discussed with the patient including prescriptions and/or symptomatic cares (if applicable) including appropriate and responsible use, followup plan, and return precautions. The patient verbalized understanding and felt safe for discharge. Medical Records I reviewed the patient's medical records. Lab Data I reviewed the patient's lab results. Radiology Impressions Knee X-Ray 06/19/22 13:52 IMPRESSION: 1. Negative left knee. Discharge Plan Discharge Clinical Impression: Acute knee pain, Quadriceps tendinitis Prescriptions: No Action gabapentin 300 mg capsule 300 mg PO TID buprenorphine-naloxone 2-0.5 mg tablet, sublingual 1 tab sublingual BID baclofen 10 mg tablet 10 mg PO TID doxycycline hyclate 100 mg capsule 100 mg PO BID 7 Days Qty: 14 0RF clonidine HCl 0.1 mg tablet 0.1 mg PO BID Qty: 6 0RF Discharge Orders: Discharge ED (Routine); Ordered 06/19/22 Ordered By: Olu Ma Discharge Diet: Usual diet Discharge Activity: Increase activity as tolerated Patient Instructions: Knee Pain (ED), Patellar Tendinitis (ED), Pain Management Activity Restrictions/Additional Instructions: Thank you for visiting the emergency department. You were seen and evaluated for knee pain. The most likely cause of your symptoms is related to inflammation and strain of the tendons including your quadriceps tendons and patellar tendons. I recommend initially rest and ice as well as elevation and acetaminophen/ibuprofen. After 1 week gentle return to activity. I will message case management for follow-up with orthopedics. Return to the emergency department for uncontrolled symptoms, fevers, redness or swelling of the joint, or anything else that you are concerned about a feel needs emergency department evaluation. Coding Level of Care Code ED Equipment Services Associate for [facility]
--- NOTE | 2022-06-19 13:52 | XR_ITS ---
WS: [id number] Exam: XR knee LT 3V* [id number] Date/Time of Exam: 06/19/2022 1:52 PM Reason For Exam: superior knee pain, no acute trauma No fracture or dislocation. The joint compartments are well-maintained. No joint effusion. XR/XR knee LT 3V* [id number] IMPRESSION: 1. Negative left knee.
[2022-06-19] MEDS: acetaminophen 500 mg Tablet 1000 MG PO (14:16)
[2022-06-19] MEDS: cyclobenzaprine 10 mg Tablet PO (14:16)
== END 2022-06-19 14:45 | disposition home or self-care (01) ==
PROVIDERS: Emergency Provider Emergency Medicine
DX: M77.8 Other enthesopathies, not elsewhere classified (principal); M25.562 Pain in left knee
CPT/HCPCS: 73562; 99283